=== PATIENT | male | born 1995 | race African-American/Black ===

== ENCOUNTER 2017-03-25 18:23 | Emergency (ER) | payer BC ==
[~2017-03-25] VITALS: Ht 175.3 cm; Wt 88.0 kg
[2017-03-25 18:28] VITALS: BP 121/43
== END 2017-03-25 22:30 | disposition left against medical advice (07) ==
LOC: ER 18:30
DX: R36.9 Urethral discharge, unspecified (principal); Z53.21 Procedure and treatment not carried out due to patient leaving prior to being seen by health care provider

== ENCOUNTER 2017-03-26 03:44 | Emergency (ER) | payer BC ==
[~2017-03-26] VITALS: Ht 175.3 cm; Wt 87.0 kg
[2017-03-26 04:26] VITALS: BP 129/49
== END 2017-03-26 11:19 | disposition left against medical advice (07) ==
LOC: ER 03:44
DX: N50.9 Disorder of male genital organs, unspecified (principal); R10.30 Lower abdominal pain, unspecified; Z53.21 Procedure and treatment not carried out due to patient leaving prior to being seen by health care provider

== ENCOUNTER 2017-04-04 04:14 | Emergency (ER) | payer BC ==
[~2017-04-04] VITALS: Ht 175.3 cm; Wt 86.0 kg
[2017-04-04 05:42] LABS: CLARITY URINE CLEAR (CLEAR); COLOR URINE YELLOW (YELLOW); KETONES URINE NEGATIVE (NEGATIVE); LEUKOCYTE ESTERASE URINE NEGATIVE (NEGATIVE); NITRITE URINE NEGATIVE (NEGATIVE); OCCULT BLOOD URINE NEGATIVE (NEGATIVE); PH URINE 6.5 (4.5-8.0); PROTEIN URINE NEGATIVE (NEGATIVE); SPECIFIC GRAVITY URINE 1.031 (1.005-1.030)
[2017-04-04] MEDS ORDERED: AZITHROMYCIN 500 MG TABLET PO ONE (07:00)
[2017-04-04] MEDS ORDERED: LIDOCAINE HCL 1% 20ML VIAL (Pyxis) INJ INFIL ONE (07:00)
[2017-04-04] MEDS ORDERED: CEFTRIAXONE SODIUM 250 MG/VIAL IM ONE (07:00)
[2017-04-04 08:01] VITALS: BP 112/60
== END 2017-04-04 08:02 | disposition home or self-care (01) ==
LOC: ER 04:14
DX: R36.9 Urethral discharge, unspecified (principal); F17.200 Nicotine dependence, unspecified, uncomplicated; F12.10 Cannabis abuse, uncomplicated
CPT/HCPCS: 81003; 96372; 99283; J0696; J3490; Z7610

== ENCOUNTER 2017-11-06 01:18 | Emergency (ER) | payer BC ==
[~2017-11-06] VITALS: Ht 170.2 cm; Wt 79.0 kg
[2017-11-06 03:50] VITALS: BP 111/63
[2017-11-06] MEDS ORDERED: AZITHROMYCIN 500 MG TABLET PO ONE (04:00)
[2017-11-06] MEDS ORDERED: CEFTRIAXONE SODIUM 250 MG/VIAL IM ONE (04:00)
== END 2017-11-06 10:11 | disposition home or self-care (01) ==
LOC: ER 01:18
DX: Z20.2 Contact with and (suspected) exposure to infections with a predominantly sexual mode of transmission (principal)
CPT/HCPCS: 99283; J0696

== ENCOUNTER 2018-04-16 04:12 | Emergency (ER) | payer BC ==
[~2018-04-16] VITALS: Ht 170.2 cm; Wt 102.0 kg
[2018-04-16] MEDS ORDERED: LIDOCAINE HCL 1% 20ML VIAL (Pyxis) INJ INFIL ONE (06:30)
[2018-04-16] MEDS ORDERED: BACITRACIN ZINC OINT UDPKT TOP ONE (07:00)
[2018-04-16 07:04] VITALS: BP 121/69
== END 2018-04-16 07:06 | disposition home or self-care (01) ==
LOC: ER 04:12
DX: L02.414 Cutaneous abscess of left upper limb (principal)
CPT/HCPCS: 10060; 99283; J3490